=== PATIENT | male | born 1990 | race Caucasian/White ===

== ENCOUNTER 2024-07-26 00:23 | Emergency (ER) | payer SELFPAY | END 2024-07-26 01:27 | disposition home or self-care (01) | LOC: ERS 00:23 → EEVIPCON 00:23 → ERS 01:27 | DX: S50.811A Abrasion of right forearm, initial encounter (principal); V48.9XXA Unspecified car occupant injured in noncollision transport accident in traffic accident, initial encounter; W22.10XA Striking against or struck by unspecified automobile airbag, initial encounter; Z55.0 Illiteracy and low-level literacy | CPT/HCPCS: 99284 ==